=== PATIENT | male | born 1970 | race Caucasian/White ===

== ENCOUNTER 2024-08-13 10:13 | Emergency (ER) | payer OTHER, SELFPAY ==
[2024-08-13 10:28] VITALS: BP 127/72
[2024-08-13 10:35] VITALS: BP 127/72
[2024-08-13 10:42] VITALS: BP 122/86; BMI 31.4
--- NOTE | 2024-08-13 10:45 | ED.GENMED ---
History of Present Illness
<Dorian Almaraz PA-C - Last Filed: 08/13/24 12:43>
General
Chief Complaint: Chest Pain
Source: patient
Exam Limitations: none
Time Seen by Provider: 08/13/24 10:36
History of Present Illness
History of Present Illness:
53-year-old male with history of hypertension paroxysmal A-fib not currently on blood thinners presents with 4 days worth of chest discomfort and shortness of breath. He states any minimal exertion recreate to shortness of breath. Pain in his
chest is not described as a pain he feels a different sensation. He has no discomfort when taking a deep breath. He does note some recent weight gain. He did not notice any leg swelling. He denies any orthopnea. He denies abdominal pain.
Admits to drinking at least 12 beers a day. No other complaints at this time
Past History
<Dorian Almaraz PA-C - Last Filed: 08/13/24 12:43>
Past History
ED Past Medical History: Arrthythmia (Atrial fibrillation), Cancer (Skin), GERD, HTN and Other (Hyponatremia, hypomagnesemia, gout)
ED Past Surgical History: Appendectomy and Orthopedic
Social History
Tobacco: Non-smoker
Alcohol: Daily
Drug: None
Personal: Single
Living: alone
Employment: Employed
Phy Exam
<Dorian Almaraz PA-C - Last Filed: 08/13/24 12:43>
Physical Exam
Physical Exam:
General: Well-appearing male no acute respiratory distress
HEENT: Normocephalic sclera slightly icteric neck is supple
Heart: Regular rate and rhythm
Lungs: Clear no wheeze
Abdomen is soft nontender nondistended
Extremities: Mild pitting edema bilateral lower extremities
Skin is warm no rash
Scores
<Dorian Almaraz PA-C - Last Filed: 08/13/24 12:43>
Heart Score for Chest Pain Patients
STEMI patient?: No
History: Slightly or Non-Suspicious
ECG: Normal
Age: >45 - <65 years
Risk Factors: 1 or 2 Risk Factors
Troponin: </= Normal Limit
Heart Score for Chest Pain Patients: 2
Heart Score Risk: 2.5% MACE over next 6 weeks
Course
<Dorian Almaraz PA-C - Last Filed: 08/13/24 12:43>
Orders/Labs/Results
Orders:
Orders
08/13/24 10:16
ECG [Electrocardiogram (*1)] Urgent
Reason for Study: Chest Pain
EKG- Treatment ONCE
08/13/24 10:44
CR Chest - 2 Views Urgent
Comment:
Reason For Exam: sob
08/13/24 10:48
D-Dimer Urgent
08/13/24 10:49
Complete Blood Count/With Diff Urgent
Comprehensive Metabolic Panel Urgent
Lipase Urgent
Magnesium Urgent
NT-proBNP Urgent
Troponin I Urgent
Abnormal Lab Results
08/13/24
10:49
RBC 2.77 L 10^6/uL
(4.70-6.10)
Hgb 9.5 L g/dL
(13.0-18.0)
Hct 26.7 L %
(39.0-52.0)
MCV 96.4 H fL
(80.0-94.0)
MCH 34.3 H pg
(27.0-31.0)
Absolute Lymphs (auto) 0.7 L 10^3/uL
(1.2-3.4)
Neutrophils % 78.4 H %
(42.2-75.2)
Lymphocytes % 11.9 L %
(20.5-51.1)
Sodium 127 L mmol/L
(135-145)
Carbon Dioxide 19 L mmol/L
(22-30)
BUN 25 H mg/dl
(9-20)
Creatinine 1.5 H mg/dL
(0.7-1.3)
Glucose 100 H mg/dl
(70-99)
Magnesium 1.1 L mg/dl
(1.6-2.3)
AST 62 H U/L
(17-59)
08/13/24 10:49
08/13/24 10:49
Vital Signs
Initial and Last Documented VS:
Initial Vital Signs
Temp Pulse Resp BP Pulse Ox
98.7 F 63 18 127/72 99
08/13/24 10:28 08/13/24 10:28 08/13/24 10:28 08/13/24 10:28 08/13/24 10:28
Last Documented Vital Signs
Temp Pulse Resp BP Pulse Ox
98.2 F 62 16 122/83 99
08/13/24 10:35 08/13/24 11:53 08/13/24 12:00 08/13/24 11:52 08/13/24 12:01
<Geovanni Carreno MD - Last Filed: 08/13/24 12:33>
Orders/Labs/Results
Orders:
Orders
08/13/24 10:16
ECG [Electrocardiogram (*1)] Urgent
Reason for Study: Chest Pain
EKG- Treatment ONCE
08/13/24 10:44
CR Chest - 2 Views Urgent
Comment:
Reason For Exam: sob
08/13/24 10:48
D-Dimer Urgent
08/13/24 10:49
Complete Blood Count/With Diff Urgent
Comprehensive Metabolic Panel Urgent
Lipase Urgent
Magnesium Urgent
NT-proBNP Urgent
Troponin I Urgent
Abnormal Lab Results
08/13/24
10:49
RBC 2.77 L 10^6/uL
(4.70-6.10)
Hgb 9.5 L g/dL
(13.0-18.0)
Hct 26.7 L %
(39.0-52.0)
MCV 96.4 H fL
(80.0-94.0)
MCH 34.3 H pg
(27.0-31.0)
Absolute Lymphs (auto) 0.7 L 10^3/uL
(1.2-3.4)
Neutrophils % 78.4 H %
(42.2-75.2)
Lymphocytes % 11.9 L %
(20.5-51.1)
Sodium 127 L mmol/L
(135-145)
Carbon Dioxide 19 L mmol/L
(22-30)
BUN 25 H mg/dl
(9-20)
Creatinine 1.5 H mg/dL
(0.7-1.3)
Glucose 100 H mg/dl
(70-99)
Magnesium 1.1 L mg/dl
(1.6-2.3)
AST 62 H U/L
(17-59)
08/13/24 10:49
08/13/24 10:49
Vital Signs
Initial and Last Documented VS:
Initial Vital Signs
Temp Pulse Resp BP Pulse Ox
98.7 F 63 18 127/72 99
08/13/24 10:28 08/13/24 10:28 08/13/24 10:28 08/13/24 10:28 08/13/24 10:28
Last Documented Vital Signs
Temp Pulse Resp BP Pulse Ox
98.2 F 62 16 122/83 99
08/13/24 10:35 08/13/24 11:53 08/13/24 12:00 08/13/24 11:52 08/13/24 12:01
<Dorian Almaraz PA-C - Last Filed: 08/13/24 12:43>
MDM/Problems Addressed
Differential Diagnosis Includes:
Patient with shortness of breath and intermittent chest discomfort. Differential could include pneumonia versus PE versus volume overload versus liver failure versus anemia versus electrolyte abnormality. Review of chart does show that he has a
history of hyponatremia.
EKG here shows sinus rhythm without ischemic changes.
D-dimer and chest x-ray pending. Labs including troponin and BNP pending as well.
<Dorian Almaraz PA-C - Last Filed: 08/13/24 12:43>
*Critical Care Note
Total Time (30-74mins, 75-104mins- exclusive of procedures): Not Applicable
<Dorian Almaraz PA-C - Last Filed: 08/13/24 12:43>
Update Note
Update Note:
Workup here demonstrates new anemia with a hemoglobin of 9.5. Rectal exam performed after this shows brown stool heme-negative. Sodium is low but chronically low. Troponin undetectable. Chest x-ray shows no evidence of volume overload D-dimer is
undetectable. Dyspnea on exertion and shortness of breath may be a product of anemia or anginal symptom. Discussed with patient regarding recommendation to stay in hospital for further evaluation. Patient is declining staying in the hospital. He
states he needs to go to work. He understands that leaving could result in further shortness of breath heart attack or .
Discussed with emergency room attending saw the patient as well. Patient
ED Attending Note
<Dorian Almaraz PA-C - Last Filed: 08/13/24 12:43>
-
Portions of this chart may have been created with voice recognition software.� Occasional wrong word or��sound alike� substitutions may have occurred due to the inherent limitations of voice recognition software.
<Geovanni Carreno MD - Last Filed: 08/13/24 12:33>
ED Attending Note
Patient seen and examined by attending physician: Yes
I performed the substantive portion of visit, reviewed & personally made and approve the management plan that is documented in note by myself or RAMÓN.: Yes
ED Attending Note:
53-year-old male presents with exertional shortness of breath with some occasional chest discomfort over the last week. Seems more progressive. No abdominal pain no change in stools. Minimal symptoms at rest.
Admits to drinking 12 beers per day. History of chronic hyponatremia
On exam patient is nontoxic in no distress. Lungs are clear and equal. Heart regular rate and rhythm. Abdomen soft and nontender. Warm and dry. Perfusing well.
EKG normal sinus rhythm nonspecific interventricular delay. Troponin negative. Minimal elevation proBNP. D-dimer negative. Chest x-ray with no heart failure. Patient needs a rectal exam.. Recommended admission for possible new onset angina
complicated by anemia. Patient at this time refuses to stay. We will call with cardiology now.
1230... Patient refuses to stay. It was explained carefully that his symptoms could be unstable angina and could be life-threatening. It was made very clear to him that he could of sudden cardiac arrest. He has other issues including the
anemia which may be factoring into his shortness of breath. This also needs follow-up.
Patient remains refusing and is fully aware of the ramifications. We will arrange cardiac follow-up, hematology information and should follow-up his chronic hyponatremia
Discharge Plan
Departure
Patient Disposition: Against Medical Advice
Date of Disposition: 08/13/24
Time of Disposition: 12:41
Discharge Problem:
Anemia, Acute hyponatremia, Dyspnea on exertion
Instructions: Hyponatremia, Anemia in adults, possibly from low iron - ED discharge instructions, Chest Pain CBC Follow Up
Prescriptions:
No Action
atorvastatin 40 mg Tablet
40 mg PO DAILY
rabeprazole [AcipHex] 20 mg Tablet,Delayed Release (Dr/Ec)
20 mg PO BID
alprazolam 0.5 mg Tablet
0.5 mg PO TID PRN (Reason: anxiety)
flecainide 100 mg Tablet
100 mg PO BID
allopurinol 300 mg Tablet
300 mg PO DAILY
sodium chloride 1,000 mg Tablet,Soluble
4,000 mg PO DAILY
amlodipine-valsartan 5-320 mg Tablet
1 tab PO DAILY
fenofibric acid (choline) 135 mg capsule,delayed release(DR/EC)
135 mg PO DAILY
nebivolol [Bystolic] 20 mg Tablet
20 mg PO DAILY
tramadol 100 mg tablet
100 mg PO Q6H PRN (Reason: pain) Qty: 20 0RF
Referrals:
Hollis Wilhelm DO [Family Provider] -
Noble Villa MD [Active] -
Activity Restrictions/Additional Instructions:
As discussed we recommended that you stay in the hospital. Your decision to leave may result in further shortness of breath heart attack or even . Please if you change your mind at any point come back for further evaluation. Otherwise
continue to follow-up with cardiology and hematology.
Interventions
Interventions:
*Risk Screen - Suicide Last Done: 08/13/24 10:28
*General Assessment Last Done: 08/13/24 10:28
*Neglect/Abuse Screening Last Done: 08/13/24 10:28
*ED- Fall Risk Assessment Last Done: 08/13/24 10:42
*ED COVID-19 Vaccine History Last Done: 08/13/24 10:28
ED- Cardiac Assessment Last Done: 08/13/24 12:01
Discharge Date and Time
Print Language: MALAY
[2024-08-13 10:57] LABS: % Basophils 0.5 % (0-2); % Eosinophils 1.9 % (0-6); % Immature Granulocytes 0.3 % (0-0.5); % Lymphocytes 11.9 % (20.5-51.1); % Neutrophils 78.4 % (42.2-75.2); Absolute Eosinophils 0.1 10^3/uL (0-0.7); Absolute Lymphocytes 0.7 10^3/uL (1.2-3.4); Absolute Monocytes 0.4 10^3/uL (0.1-0.6); Absolute Neutrophils 4.6 10^3/uL (1.4-6.5); Hematocrit 26.7 % (39.0-52.0); Hemoglobin 9.5 g/dL (13.0-18.0); Mean Corp Hgb Conc. 35.6 g/dL (33.0-37.0); Mean Corpuscular Hgb 34.3 pg (27.0-31.0); Mean Corpuscular Volume 96.4 fL (80.0-94.0); Mean Platelet Volume 9.3 fL (7.4-10.4); Nucleated Red Blood Cells % 0 % (-); Platelet Count 202 10^3/uL (130-400); Red Blood Cell Count 2.77 10^6/uL (4.70-6.10); Red Cell Dist. Width 12.4 % (11.5-14.5); White Blood Cell Count 5.9 10^3/uL (4.8-10.8)
[2024-08-13 11:00] VITALS: BP 117/79
[2024-08-13 11:11] LABS: ALT (SGPT) 42 U/L (0-50); AST (SGOT) 62 U/L (17-59); Albumin 4.4 g/dl (3.5-5.0); Alkaline Phosphatase 54 U/L (38-126); Blood Urea Nitrogen 25 mg/dl (9-20); Calcium 9.3 mg/dl (8.4-10.2); Carbon Dioxide 19 mmol/L (22-30); Chloride 98 mmol/L (98-107); Estimated Creatinine Clearance 78 ml/min; Glucose 100 mg/dl (70-99); Lipase 102 U/L (23-300); Magnesium 1.1 mg/dl (1.6-2.3); Sodium 127 mmol/L (135-145); Total Bilirubin 1.1 mg/dl (0.2-1.3); eGFR 55.32
[2024-08-13 11:14] LABS: D-Dimer < 0.27 ug/mlFEU (0.00-0.50)
[2024-08-13 11:25] LABS: NT-proBNP 1130 pg/ml; Troponin I < 0.012 ng/ml
[2024-08-13 11:52] VITALS: BP 122/83
[2024-08-13 12:00] VITALS: BP 130/84
== END 2024-08-13 12:55 | disposition left against medical advice (07) ==
LOC: EMR 10:13
PROVIDERS: Physician Assistant; EMERGENCY PHYSICIAN Emergency Medicine; FAMILY PHYSICIAN Family Medicine
DX: D64.9 Anemia, unspecified (principal); E87.1 Hypo-osmolality and hyponatremia; R06.09 Other forms of dyspnea; I48.0 Paroxysmal atrial fibrillation; I10 Essential (primary) hypertension; K21.9 Gastro-esophageal reflux disease without esophagitis; Z85.828 Personal history of other malignant neoplasm of skin; Z90.49 Acquired absence of other specified parts of digestive tract; Z53.29 Procedure and treatment not carried out because of patient's decision for other reasons
CPT/HCPCS: 99285; 71046; 80053; 83690; 83735; 83880; 84484; 85025; 85379; 93005

== ENCOUNTER 2025-05-05 14:18 | Emergency (ER) | payer OTHER, SELFPAY ==
[2025-05-05 14:25] VITALS: BP 153/113
[2025-05-05 14:57] LABS: Hematocrit 29.5 % (39.0-52.0); Hemoglobin 10.9 g/dL (13.0-18.0); Mean Corp Hgb Conc. 36.9 g/dL (33.0-37.0); Mean Corpuscular Volume 93.1 fL (80.0-94.0); Nucleated Red Blood Cells % 0 % (-); Platelet Count 209 10^3/uL (130-400); Red Cell Dist. Width 12.4 % (11.5-14.5)
[2025-05-05 15:06] LABS: COVID-19 Antigen Negative (Negative)
[2025-05-05 15:08] LABS: INR 1.11; PT 14.4 Sec (11.4-14.6)
[2025-05-05 15:09] LABS: ALT (SGPT) 140 U/L (0-50); AST (SGOT) 215 U/L (17-59); Albumin 4.6 g/dl (3.5-5.0); Alkaline Phosphatase 58 U/L (38-126); Blood Urea Nitrogen 11 mg/dl (9-20); Calcium 9.6 mg/dl (8.4-10.2); Carbon Dioxide 19 mmol/L (22-30); Chloride 91 mmol/L (98-107); Glucose 75 mg/dl (70-99); Potassium 4.3 mmol/L (3.5-5.1); Sodium 124 mmol/L (135-145); Total Protein 7.4 g/dl (6.3-8.2); eGFR > 60.00
[2025-05-05 15:20] LABS: Troponin I < 0.012 ng/ml
--- NOTE | 2025-05-05 18:16 | ED.GENMED ---
History of Present Illness
General
Chief Complaint: Breathing Problem
Source: patient
Exam Limitations: none
Time Seen by Provider: 05/05/25 18:03
Nursing documentation reviewed up to this point in time: agreed with
History of Present Illness
History of Present Illness:
54-year-old male past medical history of A-fib currently on flecainide, hypertension hyperlipidemia alcohol abuse presenting to the emergency department today with concerns of shortness of breath over the past 3 weeks. Has been seen by urgent care
2 times in the duration was initially on antibiotic and then last week was started on steroids on a taper dose currently on 10 mg daily for the next few days. Has been using an albuterol inhaler intermittently at home without relief. Denies any
specific chest pain nausea vomiting or ongoing fevers. Denies any history of asthma or COPD.
Past History
Past History
ED Past Medical History: Arrthythmia (Atrial fibrillation), Cancer (Skin), GERD, HTN and Other (Hyponatremia, hypomagnesemia, gout)
ED Past Surgical History: Appendectomy and Orthopedic
Social History
Tobacco: Non-smoker
Alcohol: Daily
Drug: None
Personal: Single
Living: alone
Employment: Employed
Review of Systems
Review of Systems
Allergies reviewed?: Yes
All Other Systems: ROS reviewed and negative except as documented in HPI and ROS
Phy Exam
Physical Exam
Physical Exam:
GENERAL: Alert , in no apparent distress
EYE: pupils equal and reactive
NECK: Supple, no significant adenopathy.
ENT: o/p clr, mmm.
CARDIAC: Regular rate and rhythm .
LUNGS: Inspiratory and expiratory wheezing bilaterally
ABDOMEN: Soft, without focal tenderness, no r/g, no cvat
NEUROLOGICAL: Alert and oriented, no focal neuro deficits
SKIN: Warm and dry, skin intact.
MUSCULOSKELETAL: No edema, well perfused.
PSYCH: Normal and appropriate interaction.
Scores
Heart Failure Risk
Heart Failure Risk Score: Not Applicable
Course
Orders/Labs/Results
Orders:
Orders
05/05/25 14:28
EKG [Electrocardiogram (*1)] Urgent
Reason for Study: Shortness of Breath
EKG- Treatment ONCE
CR Chest - 2 Views Urgent
Comment:
Reason For Exam: SOB
05/05/25 14:39
COVID-19 Antigen Urgent
Source: Nasal Swab
Complete Blood Count/With Diff Urgent
Comprehensive Metabolic Panel Urgent
Pro-BNP [NT-proBNP] Urgent
Prothrombin Time Urgent
Troponin I Urgent
Influenza A+B Rapid Molecular Urgent
DARCI Source: Nasal Swab
Specimen Description:
05/05/25 18:15
Dexamethasone Sod Phosphate [Decadron] 10 mg IV NOW STA
Famotidine [Pepcid] 20 mg IV NOW STA
Ipratropium/Albuterol Sulfate [Duoneb] 3 ml INH R NOW ONE
Ondansetron Injectable [Zofran] 4 mg IV NOW STA
Abnormal Lab Results
05/05/25
14:39
RBC 3.17 L 10^6/uL
(4.70-6.10)
Hgb 10.9 L g/dL
(13.0-18.0)
Hct 29.5 L %
(39.0-52.0)
MCH 34.4 H pg
(27.0-31.0)
Absolute Neuts (auto) 7.7 H 10^3/uL
(1.4-6.5)
Absolute Lymphs (auto) 0.3 L 10^3/uL
(1.2-3.4)
Neutrophils % 90.8 H %
(42.2-75.2)
Lymphocytes % 3.6 L %
(20.5-51.1)
Sodium 124 L mmol/L
(135-145)
Chloride 91 L mmol/L
(98-107)
Carbon Dioxide 19 L mmol/L
(22-30)
Total Bilirubin 1.4 H mg/dl
(0.2-1.3)
AST 215 H U/L
(17-59)
ALT 140 H U/L
(0-50)
05/05/25 14:39
05/05/25 14:39
Vital Signs
Initial and Last Documented VS:
Initial Vital Signs
Temp Pulse Resp BP Pulse Ox
98.8 F 96 17 153/113 96
05/05/25 14:25 05/05/25 14:25 05/05/25 14:25 05/05/25 14:25 05/05/25 14:25
Last Documented Vital Signs
Temp Pulse Resp BP Pulse Ox
98.8 F 83 17 160/93 100
05/05/25 14:25 05/05/25 18:46 05/05/25 14:25 05/05/25 19:00 05/05/25 19:00
MDM/Problems Addressed
MDM/Problems Addressed:
54-year-old male presenting to the emergency department today with concerns of shortness of breath over the past 3 weeks. Initially treated with an antibiotic then has since been on steroid currently on 10 mg daily. Here vital signs are normal
pulse ox in the mid 90s labs showing low sodium. He does claim to have chronic low sodium levels that the mid 120s is normal for him. He follows up closely as an outpatient for this. Also claims that he has been drinking daily. Here does have
wheezing diffusely. Was started on DuoNeb steroid also given medication considering he also has had some nausea. Otherwise chest x-ray normal EKG normal troponin negative. Patient was reassessed after treatment still with ongoing wheeze. Vital
signs do look normal with pulse ox in the mid 90s heart rate in the 80s. Patient does not appear to be in any distress. It was explained to him that his sodium was low at 124. He claims that this is chronically low which was verified with old
levels. He claimed that he would like to go home at this point. It was explained to him that need to be admitted due to the ongoing wheezing despite outpatient steroids as well as a low sodium. He claimed that he still would not like to stay and
understands the risk. He claims it will follow-up closely as an outpatient and he would return if any symptoms worsen.
*Pulse Oximetry
SaO2: 96
Oxygen Mode of Delivery: Room air
Patient hypoxic: no (95)
*Critical Care Note
Total Time (30-74mins, 75-104mins- exclusive of procedures): Not Applicable
ED Attending Note
-
Portions of this chart may have been created with voice recognition software.� Occasional wrong word or��sound alike� substitutions may have occurred due to the inherent limitations of voice recognition software.
Discharge Plan
Departure
Patient Disposition: Home (Routine Discharge)
Date of Disposition: 05/05/25
Time of Disposition: 19:27
Patient with high blood pressure during this ER visit?: No
Condition: Good
Covid-19: Not Applicable
Discharge Problem:
Wheeze, Hyponatremia
Instructions: Asthma, Adult (DC)
Prescriptions:
New
(DME) nebulizer and compressor Device
See Rx Instructions .ROUTE Qty: 1 0RF
Rx Instructions:
As directed
albuterol sulfate 2.5 mg /3 mL (0.083 %) solution for nebulization
2.5 mg inhalation Q4H PRN (Reason: bronchospasm) Qty: 90 0RF
prednisone 10 mg Tablet
See Rx Instructions .ROUTE .COMPLEX Qty: 30 0RF
Rx Instructions:
Take By Mouth:
40 mg daily x3 days, 30 mg daily x3 days,
20 mg daily x3 days, 10 mg daily x3 days.
No Action
atorvastatin 40 mg Tablet
40 mg PO DAILY
rabeprazole [AcipHex] 20 mg Tablet,Delayed Release (Dr/Ec)
20 mg PO BID
alprazolam 0.5 mg Tablet
0.5 mg PO TID PRN (Reason: anxiety)
flecainide 100 mg Tablet
100 mg PO BID
allopurinol 300 mg Tablet
300 mg PO DAILY
sodium chloride 1,000 mg Tablet,Soluble
4,000 mg PO DAILY
amlodipine-valsartan 5-320 mg Tablet
1 tab PO DAILY
fenofibric acid (choline) 135 mg capsule,delayed release(DR/EC)
135 mg PO DAILY
nebivolol [Bystolic] 20 mg Tablet
20 mg PO DAILY
tramadol 100 mg tablet
100 mg PO Q6H PRN (Reason: pain) Qty: 20 0RF
Activity Restrictions/Additional Instructions:
You came to the emergency department today with concerns of shortness of breath has been ongoing. Here you are found to be wheezing. You were given steroid as well as nebulizer treatment. You will need ongoing steroids at a tapered dose and
follow close with the primary care doctor. Please use the nebulizer as needed. Return for any worsening, new or concerning symptoms.
Interventions
Interventions:
*Risk Screen - Suicide Last Done: 05/05/25 14:27
*General Assessment Last Done: 05/05/25 14:27
*Neglect/Abuse Screening Last Done: 05/05/25 14:27
*ED COVID-19 Vaccine History Last Done: 05/05/25 14:27
*ED Influenza Vaccine History Last Done: 05/05/25 14:27
[facility] Fall Risk Assessment Tool Last Done: 05/05/25 18:46
ED- Cardiac Assessment Last Done: 05/05/25 18:47
ED- Pulmonary Assessment Last Done: 05/05/25 18:47
Discharge Date and Time
Print Language: SLOVENIAN
[2025-05-05 18:24] VITALS: BMI 28.6
[2025-05-05] MEDS: DECADRON 10 MG IV (18:30)
[2025-05-05] MEDS: ZOFRAN 4 MG IV (18:31)
[2025-05-05] MEDS: PEPCID 20 MG IV (18:32)
[2025-05-05] MEDS: DUONEB 3 ML INH (18:41)
[2025-05-05 18:46] VITALS: BP 165/93
[2025-05-05 19:00] VITALS: BP 160/93
== END 2025-05-05 19:45 | disposition home or self-care (01) ==
LOC: EMR 14:18
PROVIDERS: Emergency Medicine; EMERGENCY PHYSICIAN Emergency Medicine
DX: R06.2 Wheezing (principal); E87.1 Hypo-osmolality and hyponatremia; E78.5 Hyperlipidemia, unspecified; I10 Essential (primary) hypertension; I48.91 Unspecified atrial fibrillation; Z90.49 Acquired absence of other specified parts of digestive tract; Z85.828 Personal history of other malignant neoplasm of skin; Z79.899 Other long term (current) drug therapy; Z11.52 Encounter for screening for COVID-19
CPT/HCPCS: 96374; 96375; 94640; 99284; 71046; 80053; 83880; 84484; 85025; 85610; 87502; 87811; 93005

== ENCOUNTER 2025-05-09 20:17 | Inpatient (IN) | payer OTHER, SELFPAY ==
[2025-05-09] VITALS (20 sets, daily range): BP systolic 62–135; BP diastolic 37–87; BMI 14.4; BMI 30.9
--- NOTE | 2025-05-09 15:38 | ED.GENMED ---
History of Present Illness
General
Chief Complaint: Breathing Problem
Time Seen by Provider: 05/09/25 15:29
History of Present Illness
History of Present Illness:
Patient is a 54-year-old male with a history of atrial fibrillation, hypertension, alcohol use disorder who presents to the emergency department with cough and shortness of breath. This has been ongoing for the past 2 weeks. States he was seen
doctors in the urgent care in the emergency department for similar symptoms without good diagnosis. Notes he feels more short of breath. His notes episodes of confusion. She reports that he has had hyponatremia in the past and it appeared
similar to this. Patient denies any chest pain. Denies leg swelling.
Past History
Past History
ED Past Medical History: Arrthythmia (Atrial fibrillation), Cancer (Skin), GERD, HTN and Other (Hyponatremia, hypomagnesemia, gout)
ED Past Surgical History: Appendectomy and Orthopedic
Social History
Tobacco: Non-smoker
Alcohol: Daily
Drug: None
Personal: Single
Living: alone
Employment: Employed
Phy Exam
Physical Exam
Physical Exam:
GENERAL APPEARANCE: No acute distress, chronically ill-appearing
EYES lids/conjunctiva normal
EARS/NOSE/THROAT Mucous membranes moist, uvula midline without oral pharyngeal erythema, exudate or swelling
HEAD/NECK Normocephalic atraumatic, neck is supple.
RESPIRATORY tachypnea noted, rhonchi bilaterally. Diminished breath sounds on the left.
CARDIAC Regular rate and rhythm, no edema.
ABDOMINAL Soft, ND/NT.
MUSCLES/EXTREMITIES No abnormal range of motion, no swelling.
SKIN Warm, pink and dry. No rashes
NEUROLOGICAL Speech is clear and appropriate. Normal level of consciousness. 5/5 strength in all extremities.
PSYCH Normal mood and affect. Judgement/competence is appropriate
Scores
Heart Failure Risk
Heart Failure Risk Score: Not Applicable
Course
Orders/Labs/Results
Orders:
Orders
05/09/25 15:36
0.9% Sodium Chloride 1000 ml [Nss] 1,000 ml IV BOLUS
05/09/25 15:37
CR Chest - 2 Views Urgent
Comment:
Reason For Exam: sob
05/09/25 15:38
Electrocardiogram (*1) Urgent
Reason for Study: Other
Other Reason for Exam: sepsis
05/09/25 15:40
Complete Blood Count/With Diff Urgent
Comprehensive Metabolic Panel Urgent
D-Dimer Urgent
Magnesium Urgent
NT-proBNP Urgent
PTT Urgent
Prothrombin Time Urgent
Troponin I Urgent
05/09/25 15:42
Lactic Acid Q4H
Comment: CANCEL 2nd LACTIC ACID IF 1st LACTIC ACID IS LESS THAN 2
Blood Culture Q30M
[facility]AR[facility] Source: Blood/Venous
Specimen Description:
Influenza A+B Rapid Molecular Urgent
[facility] Source: Nasal Swab
Specimen Description:
05/09/25 15:52
Add On- LAB Urgent
Tests Added?: pron BNP
05/09/25 16:03
Blood Culture Q30M
DRACI Source: Blood/Venous
Specimen Description:
05/09/25 16:08
CT Chest PE Study Urgent
Comment:
Reason For Exam: +ddimer, sob
05/09/25 16:34
0.9% Sodium Chloride 1000 ml [Nss] 1,000 ml IV BOLUS
Ipratropium/Albuterol Sulfate [Duoneb] 3 ml INH R NOW ONE
MethylPREDNISolone PF [Solu-Medrol Pf] 125 mg IV NOW STA
05/09/25 16:39
Magnesium Sulfate 1 grams 0.9% Sodium Chloride 100 ml [Nss] 100 ml IV NOW
05/09/25 17:33
CefTRIAXone [Rocephin] 1,000 mg IV NOW STA
05/09/25 17:34
Azithromycin [Zithromax] 250 mg 0.9% Sodium Chloride 250 ml [Nss] 250 ml IV NOW
05/09/25 19:45
Lactic Acid Q4H
Comment: CANCEL 2nd LACTIC ACID IF 1st LACTIC ACID IS LESS THAN 2
Abnormal Lab Results
05/09/25
15:40
RBC 2.90 L 10^6/uL
(4.70-6.10)
Hgb 9.6 L g/dL
(13.0-18.0)
Hct 26.8 L %
(39.0-52.0)
MCH 33.1 H pg
(27.0-31.0)
Abs Immat Gran (auto) 0.1 H 10^3/uL
(0-0.05)
Immature Gran % 1.0 H %
(0-0.5)
Lymphocytes % 18.5 L %
(20.5-51.1)
D-Dimer 0.88 H ug/mlFEU
(0.00-0.50)
Sodium 124 L mmol/L
(135-145)
Chloride 95 L mmol/L
(98-107)
Carbon Dioxide 17 L mmol/L
(22-30)
Creatinine 1.7 H mg/dL
(0.7-1.3)
Glucose 108 H mg/dl
(70-99)
Magnesium 1.1 L mg/dl
(1.6-2.3)
AST 250 H U/L
(17-59)
ALT 192 H U/L
(0-50)
Total Protein 5.9 L g/dl
(6.3-8.2)
Albumin 3.4 L g/dl
(3.5-5.0)
05/09/25 15:40
05/09/25 15:40
Vital Signs
Initial and Last Documented VS:
Initial Vital Signs
Temp Pulse Resp BP Pulse Ox
97.4 F 86 16 62/43 94
05/09/25 15:13 05/09/25 15:13 05/09/25 15:13 05/09/25 15:13 05/09/25 15:13
Last Documented Vital Signs
Temp Pulse Resp BP Pulse Ox
97.4 F 75 24 91/54 93
05/09/25 15:13 05/09/25 16:45 05/09/25 16:45 05/09/25 16:45 05/09/25 16:40
*Pulse Oximetry
SaO2: 94
Oxygen Mode of Delivery: Room air
Patient hypoxic: yes
*Critical Care Note
Total Time (30-74mins, 75-104mins- exclusive of procedures): 35 minutes
Update Note
Update Note:
Reassessed patient per sepsis protocol. Patient with improving vital signs maintaining normal mental status.
ED Attending Note
ED Attending Note
ED Attending Note:
Patient presents to the emergency department with shortness of breath, cough, generalized weakness. Found to be hyponatremic and have a left-sided pneumonia. Suspect aspiration pneumonia in the setting of daily alcohol use. His hyponatremia is
chronic and typically is around the low 120s. On arrival, patient was hypotensive but mentating well without any secondary signs of significant shock. Sepsis fluid bolus was ordered. Patient's blood pressure improved with IV fluids. Normal
lactate. Normal white blood cell count.
presents with shortness of breath over the past month, cough. Has been treated for pneumonia as outpatient. Also treated for bronchitis. Has been on steroids for pretty much the last month.
More short of breath today so came to ER
he appears mildly tachypnniec. Rhonchorus breath sounds and some scattered wheezing present. Diminished on the L
afebrile
he is hypoxic to 89% on RA. requiring NC O2
initially hypotensive 60s/40s. Improving with IVF
CTA of the chest without PE. Showing ground glass multifocal opacities and interlobular septal thickening on the left . Patient does report an aspiration episode about 1 month ago.
BNP is 1060, superimposed asymmetric pulmonary edema is difficult to exclude - he will need echo too.
he may have a component of adrenal suppression as well with all the steroids he has been on.
given duonebs, solumedrol, ceftriaxone, azithromycin
-
Portions of this chart may have been created with voice recognition software.� Occasional wrong word or��sound alike� substitutions may have occurred due to the inherent limitations of voice recognition software.
Discharge Plan
Departure
Patient Disposition: Admit
Date of Disposition: 05/09/25
Time of Disposition: 17:51
Presentation/result/management discussed w/ accepting MD/DO: Hospitalist
Discharge Problem:
Multifocal pneumonia, Chronic hyponatremia, Hypomagnesemia
Prescriptions:
No Action
atorvastatin 40 mg Tablet
40 mg PO DAILY
rabeprazole [AcipHex] 20 mg Tablet,Delayed Release (Dr/Ec)
20 mg PO BID
alprazolam 0.5 mg Tablet
0.5 mg PO BIDPRN PRN (Reason: anxiety)
flecainide 100 mg Tablet
100 mg PO BID
allopurinol 300 mg Tablet
300 mg PO DAILY
sodium chloride 1,000 mg Tablet,Soluble
6,000 mg PO DAILY
fenofibric acid (choline) 135 mg capsule,delayed release(DR/EC)
135 mg PO DAILY
nebivolol [Bystolic] 20 mg Tablet
20 mg PO DAILY
prednisone 10 mg Tablet
See Rx Instructions .ROUTE .COMPLEX Qty: 30 0RF
Rx Instructions:
Take By Mouth:
40 mg daily x3 days, 30 mg daily x3 days,
20 mg daily x3 days, 10 mg daily x3 days.
amlodipine-valsartan 10-320 mg Tablet
1 tab PO DAILY
Referrals:
UNKNOWN - PT DOES,NOT KNOW [Family Provider]
Interventions
Interventions:
*General Assessment Last Done: 05/09/25 16:18
*Neglect/Abuse Screening Last Done: 05/09/25 16:22
*ED Influenza Vaccine History Last Done: 05/09/25 16:18
[facility] Fall Risk Assessment Tool Last Done: 05/09/25 16:35
ED- Cardiac Assessment Last Done: 05/09/25 16:10
ED- Pulmonary Assessment Last Done: 05/09/25 16:10
Discharge Date and Time
Print Language: VENEZUELAN
[2025-05-09] MEDS: NSS 1000 IV ×2 (15:47→16:40)
[2025-05-09 15:51] LABS: Hematocrit 26.8 % (39.0-52.0); Hemoglobin 9.6 g/dL (13.0-18.0); Mean Corp Hgb Conc. 35.8 g/dL (33.0-37.0); Mean Corpuscular Volume 92.4 fL (80.0-94.0); Nucleated Red Blood Cells % 0 % (-); Platelet Count 211 10^3/uL (130-400); Red Cell Dist. Width 12.4 % (11.5-14.5)
[2025-05-09 16:02] LABS: INR 1.09; PT 14.3 Sec (11.4-14.6)
[2025-05-09 16:03] LABS: APTT 26.9 Sec (23.4-35.0)
[2025-05-09 16:05] LABS: D-Dimer 0.88 ug/mlFEU (0.00-0.50)
[2025-05-09 16:12] LABS: ALT (SGPT) 192 U/L (0-50); AST (SGOT) 250 U/L (17-59); Albumin 3.4 g/dl (3.5-5.0); Alkaline Phosphatase 48 U/L (38-126); Blood Urea Nitrogen 11 mg/dl (9-20); Calcium 8.5 mg/dl (8.4-10.2); Carbon Dioxide 17 mmol/L (22-30); Chloride 95 mmol/L (98-107); Estimated Creatinine Clearance 37 ml/min; Glucose 108 mg/dl (70-99); Magnesium 1.1 mg/dl (1.6-2.3); Potassium 3.7 mmol/L (3.5-5.1); Sodium 124 mmol/L (135-145); Total Protein 5.9 g/dl (6.3-8.2); eGFR 47.31
[2025-05-09 16:23] LABS: Troponin I 0.026 ng/ml
[2025-05-09] MEDS: SOLU-MEDROL PF 125 MG IV (16:38)
[2025-05-09] MEDS: DUONEB 3 ML INH (16:39)
[2025-05-09] MEDS: MAGNESIUM SULFATE 102 GRAMS IV (17:42)
[2025-05-09] MEDS: ROCEPHIN 1000 MG IV (17:44)
[2025-05-09] MEDS: ZITHROMAX 252.5 MG IV (18:57)
--- NOTE | 2025-05-09 19:01 | HPS.HSE ---
Family Physician
-
Family Physician: NOT KNOW UNKNOWN - PT DOES
Chief Complaint
-
SoB over the past month with cough with progressive SoB
History of Present Illness
54M
PHX: Daily severe alcohol use, chronic hyponatremia( baseline low 120s), Prx AF
- pw SoB over the past month with cough with progressive SoB
- has been treated with OP ABx for PNA plus treating for bronchitis with steroids for much the last month.
- appears mildly tachypneic.
- Rhonchus breath sounds and wheezing present.
- afebrile
- Hypoxic POx 89% on RA. requiring NC O2
- initially hypotensive 60s/40s - improving with IVF - now he is normotensive.
Medical History
Past Medical History
Past Medical History: Reports Other
Additional Past Medical History:
Atrial fib
Hypertension
Skin cancer
GERD
Past Surgical History: Reports Other
Additional Past Surgical History:
Appendectomy
Shoulder reconstruction
Cardioversion x2
Social History
Tobacco: Non-smoker
Alcohol: Daily (15 cans of beer every day)
Drug: None
Personal: Single
Living: Alone
Employment: Employed ([employer])
Family History
Family History: Not pertinent
Allergies / Home Medications
Allergies reflects when Allergies were last updated in [employer].
Home Medications with original date entered in [employer]
Allergy/Medication List:
Allergies
Allergy/AdvReac Type Severity Reaction Status Date / Time
No Known Allergies Allergy Verified 06/26/22 11:15
Home Medications Table - record
Medication Instructions Recorded Confirmed
allopurinol 300 mg tablet 300 mg PO DAILY 02/02/22 02/02/22
alprazolam 0.5 mg tablet 0.5 mg PO TID PRN panic attacks 02/02/22 02/02/22
amlodipine 5 mg-valsartan 320 mg 1 tab PO DAILY 02/02/22 02/02/22
tablet
atorvastatin 40 mg tablet 40 mg PO DAILY 02/02/22 02/02/22
fenofibric acid (choline) 135 mg 135 mg PO DAILY 02/02/22 02/02/22
capsule,delayed release
flecainide 100 mg tablet 100 mg PO BID 02/02/22 02/02/22
nebivolol 20 mg tablet (Bystolic) 20 mg PO DAILY 02/02/22 02/02/22
rabeprazole 20 mg tablet,delayed 20 mg PO BID 02/02/22 02/02/22
release (AcipHex)
sodium chloride 1,000 mg soluble 3,000 mg PO DAILY 02/02/22 02/02/22
tablet
oxycodone-acetaminophen 5 mg-325 1 tab PO Q4HPRN PRN pain #20 tabs 05/07/22
mg tablet (Percocet)
Review of Systems
-
Constitutional: Reports No Symptoms
EENT: Reports No Symptoms
Respiratory: Reports See HPI and Trouble Breathing
Cardiac: Reports No Symptoms
Abdomen/GI: Reports No Symptoms
: Reports No Symptoms
Musculoskeletal: Reports No Symptoms
Skin: Reports No Symptoms
Neurological: Reports Weakness (Tingling of left fingers)
Endocrine: Reports No Symptoms
Hematologic/Lymphatic: Reports No Symptoms
Psych: Reports No Symptoms
Physical Exam
Vital Signs
Vital Signs
Temp Pulse Resp BP Pulse Ox
97.4 F 75 24 91/54 93
05/09/25 15:13 05/09/25 16:45 05/09/25 16:45 05/09/25 16:45 05/09/25 16:40
Physical Exam
General: No Apparent Distress and Appears Chronically Ill
HEENT: Moist mucous membranes
Respiratory: Rhonchi (bilateral Ronchi ), Decreased Breath Sounds (on the Lt ) and Other (tachypnea )
Cardiac: S1/S2 and Regular Rhythm
GI: Soft, Non Tender and Non Distended
Rectal: Deferred by Provider
Genito-urinary: Deferred by me
Musculoskeletal: Edema, Left Lower Extremity and Edema, Right Lower Extremity
Skin: Warm and Dry
Neuro: AO x 3
Psych: Calm and Intact Judgment/Insight
Laboratory Results
-
05/09/25 15:40
05/09/25 15:40
Laboratory Results
PT 14.3 Sec (11.4-14.6) 05/09/25 15:40
INR 1.09 05/09/25 15:40
APTT 26.9 Sec (23.4-35.0) 05/09/25 15:40
Lactic Acid 1.4 mmol/L (0.7-2.0) 05/09/25 15:42
Total Bilirubin 0.7 mg/dl (0.2-1.3) 05/09/25 15:40
AST 250 U/L (17-59) H 05/09/25 15:40
ALT 192 U/L (0-50) H 05/09/25 15:40
Alkaline Phosphatase 48 U/L (38-126) 05/09/25 15:40
Troponin I 0.026 ng/ml 05/09/25 15:40
Data Reviewed
-
Lab Data: Labs Reviewed by me
Old Records: Reviewed
Impression/Plan
-
Vital Signs
Temp Pulse Resp BP Pulse Ox
97.9 F 82 26 112/71 95
05/09/25 19:10 05/09/25 19:04 05/09/25 19:04 05/09/25 19:04 05/09/25 19:04
05/05/25 05/09/25
14:39 15:40
WBC 7.0
Hgb 10.9 L 9.6 L
Plt Count 209 211
05/09/25
15:40
INR 1.09
D-Dimer 0.88 H
08/13/24 05/05/25 05/09/25
10:49 14:39 15:40
Sodium 124 L 124 L
Chloride 91 L 95 L
Carbon Dioxide 19 L 17 L
Creatinine 1.5 H 1.2 1.7 H
eGFR 55.32 > 60.00 47.31
05/05/25 05/09/25 05/09/25
14:39 15:40 15:42
Lactic Acid 1.4
Magnesium 1.1 L
Total Bilirubin 1.4 H 0.7
AST 215 H 250 H
ALT 140 H 192 H
Troponin I < 0.012 0.026
Brk-Y-Hvsxpyufzyt Pept 173 1060
Albumin 3.4 L
EKG
NORMAL SINUS RHYTHM
NORMAL ECG
WHEN COMPARED WITH ECG OF 05-May-2025 14:33,
NO SIGNIFICANT CHANGE WAS FOUND
[facility] PE protocol
1. No evidence of PE
2. Interlobular septal thickening and groundglass densities as described, suggesting multifocal pneumonia/pneumonitis with possible superimposed asymmetric pulmonary edema.
2. Moderate hiatal hernia.
Last hospitalist admission: 06/26/2022 - 06/27/2022
DISCHARGE DIAGNOSES:
1. Recurrent hyponatremia due to alcohol abuse.
2. Severe alcohol use disorder.
3. History of atrial fibrillation.
SECONDARY DIAGNOSES:
1. Gout.
2. Hyperlipidemia.
3. Essential hypertension.
4. Gastroesophageal reflux disease.
ASSESSMENT & PLAN
CT suggest multifocal pneumonia/pneumonitis with possible superimposed asymmetric pulmonary edema.
- c/w empiric IV CFTZ and PO Azithro
- check PCT in AM
- FU POx
Chronic hyponatremia suspect from alcohol abuse/dehydration
- NG ( 12) MA suspect ETOH ketosis
- Sodium 124 and somewhat stable - he received 2 L NS at ER then FR 48 Fl Oz
- Hold off 3% infusion
- obtain urine sodium, serum osm, urine osm
- FU BMP
- FR 48 fl oz
- Nephrology consult
Hypomagnesemia due to ETOH use disorder
s/p IV Mg 1 gm
- FU Mg in AM
TORITO suspect pre renal due to dehydration
Essential hypertension
- B/L Sandra edema
- Hold Valsartan
- c/w Amlodipine
- Observe BP
- Observe Cr in AM
Severe ETOH disorder -drinks 15 beers daily.
- NO signs of autonomic hyperarousal
- Reversed AST : ALT ration suggestive of ETOH hepatitis
- Counseled on need for abstinence.
- Trend LFTs with abstinence from ETOH
- Watch closely for withdrawal symptoms.
- ETOH WD protocol
In NSR
HX Prx AF
- HX CV twice and patient claims he has been in sinus rhythm since.
- Not on AC
- P client relations specialist is located in [facility].
Gout
-on allopurinol.
Hyperlipidemia
-on atorvastatin, fenofibric acid.
GERD
-on AcipHex.
Obesity due to excess calories
DVT Px: SCD
Full code
IP TLM
[2025-05-09 20:50] LABS: Urine Character Clear (Clear)
--- NOTE | 2025-05-09 21:47 | TRANSFER ---
Pt arrived from the ED by stretcher. Pt able to stand for standing scale and ambulate into room. Pt c/o of dizziness and a GILL, mostly describing the dizziness as congestion in his head. No complaints of dizziness with standing. Pt states that he
drinks usually 15-20 beers a day. MSAS per protocol, score of 4. Call heath within reach. Will continue to monitor.
--- NOTE | 2025-05-09 21:53 | PTCARENOTE ---
Pt c/o burning back pain. Tylenol is the only medication ordered in MAR. Pt refusing tylenol stating. 'That doesn't do anything for me'. When asked if he takes anything at home for the pain the pt stated no. When doing the intake questions, the pt
did state that he has misused prescribed medication outside their intended use. House provider TT. Lidocaine patch ordered for lower back. See MAR.
[2025-05-09] MEDS: XANAX 0.5 MG PO (22:31)
[2025-05-09] MEDS: TAMBOCOR 100 MG PO (22:31)
[2025-05-09] MEDS: LIDOCAINE 4% PATCH 1 PATCH TOPICAL (22:32)
[2025-05-09 22:49] LABS: GGTP 99 U/L (15-73)
[2025-05-09 23:21] LABS: INR 1.06; PT 13.9 Sec (11.4-14.6)
[2025-05-09 23:22] LABS: APTT 27.6 Sec (23.4-35.0)
[2025-05-09] MEDS: THIAMINE INJECTION 200 MG IV (23:25)
[2025-05-09 23:34] LABS: Blood Urea Nitrogen 12 mg/dl (9-20); Calcium 8.5 mg/dl (8.4-10.2); Carbon Dioxide 14 mmol/L (22-30); Chloride 98 mmol/L (98-107); Estimated Creatinine Clearance 76 ml/min; Glucose 131 mg/dl (70-99); Potassium 4.1 mmol/L (3.5-5.1); Sodium 124 mmol/L (135-145); eGFR 54.98
[2025-05-10] VITALS (7 sets, daily range): BP systolic 121–164; BP diastolic 80–92; PULSE 87; O2SAT 94
[2025-05-10 07:33] LABS: Hematocrit 24.5 % (39.0-52.0); Hemoglobin 8.9 g/dL (13.0-18.0); INR 1.08; Mean Corp Hgb Conc. 36.3 g/dL (33.0-37.0); Mean Corpuscular Volume 91.4 fL (80.0-94.0); PT 14.1 Sec (11.4-14.6); Red Cell Dist. Width 12.3 % (11.5-14.5)
[2025-05-10 07:48] LABS: Platelet Count 144 10^3/uL (130-400)
[2025-05-10] MEDS: DIOVAN 320 MG PO (08:53)
[2025-05-10] MEDS: LOPRESSOR 100 MG PO (08:53)
[2025-05-10] MEDS: XANAX 0.5 MG PO ×2 (08:53→20:24)
[2025-05-10] MEDS: ZITHROMAX 500 MG PO (08:53)
[2025-05-10] MEDS: TAMBOCOR 100 MG PO ×2 (08:53→20:22)
[2025-05-10] MEDS: DELTASONE 40 MG PO (08:54)
[2025-05-10] MEDS: SODIUM CHLORIDE 6 GRAM PO (08:54)
[2025-05-10] MEDS: TRICOR 145 MG PO (08:55)
[2025-05-10] MEDS: PROTONIX 40 MG PO ×2 (08:56→20:23)
[2025-05-10] MEDS: NORVASC 10 MG PO (08:56)
[2025-05-10] MEDS: FOLVITE 1 MG PO (08:57)
[2025-05-10] MEDS: THIAMINE INJECTION 200 MG IV ×3 (08:57→23:42)
[2025-05-10] MEDS: LIPITOR 40 MG PO (08:57)
[2025-05-10 09:24] LABS: ALT (SGPT) 170 U/L (0-50); AST (SGOT) 144 U/L (17-59); Albumin 3.2 g/dl (3.5-5.0); Alkaline Phosphatase 46 U/L (38-126); Blood Urea Nitrogen 12 mg/dl (9-20); Calcium 8.3 mg/dl (8.4-10.2); Carbon Dioxide 17 mmol/L (22-30); Chloride 98 mmol/L (98-107); Estimated Creatinine Clearance 88 ml/min; Glucose 119 mg/dl (70-99); Potassium 4.0 mmol/L (3.5-5.1); Sodium 125 mmol/L (135-145); Total Protein 5.5 g/dl (6.3-8.2); eGFR > 60.00
[2025-05-10 10:33] LABS: Magnesium 1.0 mg/dl (1.6-2.3)
--- NOTE | 2025-05-10 10:37 | W.PN.HOSP.TC ---
Today's Communication/Plan
-
Monitor vital signs see plan
Monitor for alcohol withdrawal
Monitor LFTs
Continue with antibiotic
Echo
Nephrology evaluation
Might need 3% saline
Monitor sodium
Assessment / Plan
Assessment / Plan
General: No Apparent Distress and Appears Chronically Ill
HEENT: Moist mucous membranes
Respiratory: Rhonchi (bilateral Ronchi ), Decreased Breath Sounds
Cardiac: S1/S2 and Regular Rhythm
GI: Soft, Non Tender and Non Distended
Musculoskeletal: Edema, Left Lower Extremity and Edema, Right Lower Extremity
Neuro: AO x 3
Psych: Calm and Intact Judgment/Insight
Shortness of breath secondary to multifocal pneumonia/pneumonitis with possible superimposed asymmetric pulmonary edema
Continue with ceftriaxone and azithromycin
Check echo
on prednisone
Acute on chronic hyponatremia suspect from alcohol abuse/dehydration
suspect beer potomania
Sodium still low, 125. Consult nephrology for evaluation
Likely will need 3% normal saline
suspect ETOH ketosis
Hypomagnesemia due to ETOH use disorder
Replete magnesium aggressively
Monitor
Hypophosphatemia
Monitor
TORITO suspect pre renal due to dehydration
Essential hypertension
- B/L Sandra edema
- cw Valsartan
- c/w Amlodipine
Monitor creatinine
Severe ETOH disorder -drinks 15 beers daily.
- Reversed AST : ALT ration suggestive of ETOH hepatitis
- Counseled on need for abstinence.
- Trend LFTs with abstinence from ETOH
- Watch closely for withdrawal symptoms.
- ETOH WD protocol
HX Prx AF
- HX CV twice and patient claims he has been in sinus rhythm since.
- Not on AC
- P clinical material handler is located in [facility].
Gout
-on allopurinol.
Hyperlipidemia
-on atorvastatin, fenofibric acid.
GERD
-on AcipHex.
Obesity due to excess calories
DVT Px: lovenox
Full code
I spent a total of 52 minutes with the patient or on the floor. More than 50% of this time involved counseling and coordination of care.
Anticipated Discharge: > 48 hours
Subjective/Interval History
-
Date of Service: May 10, 2025
denies pain
Objective Data
-
Labs:
Laboratory Results
05/09/25 05/10/25 05/10/25
22:49 07:01 08:36
WBC 14.2 H Pending
Hgb 8.9 L Pending
Hct 24.5 L Pending
Plt Count 144 D Pending
PT 13.9 14.1
INR 1.06 1.08
APTT 27.6
Sodium 124 L 125 L
Potassium 4.1 4.0
Chloride 98 98
Carbon Dioxide 14 L* 17 L
BUN 12 12
Creatinine 1.5 H 1.3
Glucose 131 H 119 H
Calcium 8.5 8.3 L
Total Bilirubin 0.8
AST 144 H
ALT 170 H
Alkaline Phosphatase 46
Vital Signs:
Vital Signs
Temp Pulse Resp BP Pulse Ox
98.5 F 87 20 149/88 94
05/10/25 08:52 05/10/25 08:52 05/10/25 08:52 05/10/25 08:52 05/10/25 08:52
I&O
05/09/25 05/10/25 05/11/25
06:59 06:59 06:59
Intake Total 237 / 237 240 / 240
Balance 237 / 237 240 / 240
[2025-05-10] MEDS: MAGNESIUM SULFATE 100 IV (10:52)
--- NOTE | 2025-05-10 11:39 | W.CON.NEPH ---
Addendum entered and electronically signed by Giovanna Coulter MD 05/10/25 19:38:
monitor met acidosis likely from etoh-expect to see improvement
Addendum entered and electronically signed by Giovanna Coulter MD 05/10/25 16:12:
please add correction in HPI-no nausea or vomiting
Original Note:
Consultation
-
Date/Time Consultation Requested: 05/10/25 1037
Date/Time Consultation Performed: 05/10/25 1130
Requesting Provider: Cam Mohan
Performing Provider: Giovanna Amaya
Reason for Consultation: Hyponatremia
Medical History
-
Chief Complaint: progressive SoB
History of Present Illness:
54M with PMH of CHr ETOH use, chr hyponatremia(baseline in high 120s) from beer potomania on salt tab 6gm daily, Gout on allopurinol, HTN on bystolic, Amlodipine, valsartan, HLD on fibrate, statin, GERD on Aciphex, Anxiety on xanax who came with
SoB. He reportedly has onset of cough sob over last 1 months and has been to , ER once on 05/05, refused to be admitted with sodium 124. Now came back on 05/09 with progressive SoB on exertion. He has been treated with PO ABx for PNA plus treating
for bronchitis with steroids for much the last month.He noted mild hypoxic 89% on RA and CXR was negative and underwent CT PE protocol shows no PE but multifocal PNA and possibly superimposed asymmetric pulm edema. He is now placed on Rocephin and
Azithromycin. Cont on prednisone. Initially BP were low in 60s with IVF improved to normal. Sodium was at 124 on admit and today only at 125, Cr was at 1.7 improving to 1.3, baseline 0.9. His ETOH level was 384, Serum osmolarity was at 348, LFTs
were elevated. He has chronic hyponatremia from ETOH, he drinks about 20-30beers daily. initially hypotensive 60s/40s - improving with IVF - now he is normotensive. He offers mild improvement of shortness of breath. Still with a cough and
improving nausea. He vomited yesterday. He denies any abdominal pain or diarrhea or constipation. Denies any dysuria. Had dizziness. Nephrology consulted for management of hyponatremia. he reports of having tremors and sweating when he doesn't
drink but reports only last for 1 day.
Past Medical History
Atrial fib s/p CVx2
Hypertension
Skin cancer
GERD
ETOH use
chr hyponatremia
Past Surgical History: Other (Appendectomy Shoulder reconstruction Cardioversion x2)
Social History
Tobacco: Non-Smoker
Alcohol: Daily (15cans daily and can increased upto 30 on weekend)
Drug: None
Employment: Employed ([employer] )
Family History
Family History: Not Pertinent
Allergies / Home Medications
Allergy/AdvReac Type Severity Reaction Status Date / Time
No Known Allergies Allergy Verified 05/09/25 15:16
�Medication �Instructions �Recorded �Confirmed �Type
allopurinol 300 mg tablet 300 mg PO DAILY Gout 02/02/22 05/09/25 History
alprazolam 0.5 mg tablet 0.5 mg PO BIDPRN PRN anxiety 02/02/22 05/09/25 History
atorvastatin 40 mg tablet 40 mg PO DAILY High cholesterol 02/02/22 05/09/25 History
fenofibric acid (choline) 135 mg 135 mg PO DAILY High Cholesterol 02/02/22 05/09/25 History
capsule,delayed release
flecainide 100 mg tablet 100 mg PO BID Arrhythmia 02/02/22 05/09/25 History
nebivolol 20 mg tablet (Bystolic) 20 mg PO DAILY Blood pressure 02/02/22 05/09/25 History
rabeprazole 20 mg tablet,delayed 20 mg PO BID 02/02/22 05/09/25 History
release (AcipHex)
sodium chloride 1,000 mg soluble 6,000 mg PO DAILY 02/02/22 05/09/25 History
tablet
prednisone 10 mg tablet See Rx Instructions .Route 05/05/25 05/09/25 Rx
.COMPLEX #30 tabs
alprazolam 0.5 mg tablet (Xanax) 0.5 mg PO DAILY Mental 05/09/25 05/09/25 History
Health/Anxiety
amlodipine 10 mg-valsartan 320 mg 1 tab PO DAILY 05/09/25 05/09/25 History
tablet
Review of Systems
-
All other systems: Negative unless noted
Physical Exam
Vital Signs
Vital Signs
Temp Pulse Resp BP Pulse Ox
97.3 F 82 20 146/85 97
05/10/25 12:07 05/10/25 12:07 05/10/25 12:07 05/10/25 12:07 05/10/25 12:07
Lab Results
WBC Cancelled 05/10/25 08:36
RBC Cancelled 05/10/25 08:36
Hgb Cancelled 05/10/25 08:36
Hct Cancelled 05/10/25 08:36
Plt Count Cancelled 05/10/25 08:36
Potassium 4.0 mmol/L (3.5-5.1) 05/10/25 08:36
Chloride 98 mmol/L (98-107) 05/10/25 08:36
Carbon Dioxide 17 mmol/L (22-30) L 05/10/25 08:36
BUN 12 mg/dl (9-20) 05/10/25 08:36
Creatinine 1.3 mg/dL (0.7-1.3) 05/10/25 08:36
eGFR > 60.00 05/10/25 08:36
Glucose 119 mg/dl (70-99) H 05/10/25 08:36
Calcium 8.3 mg/dl (8.4-10.2) L 05/10/25 08:36
Phosphorus 3.1 mg/dl (2.5-4.5) 05/10/25 08:36
Qdg-S-Oiqfelfaqtt Pept 1060 pg/ml 05/09/25 15:40
Albumin 3.2 g/dl (3.5-5.0) L 05/10/25 08:36
Physical Exam
General: Awake, Alert, Oriented, AOx3, No Distress and Nontoxic
HEENT: EOMI, Conjunctivae Clear and Facial Symmetry
Respiratory: Clear, Normal Excursion and Nonlabored Respirations
Cardiac: S1/S2 and Regular Rate/Rhythm
Breast: Deferred by me
Abdomen: Soft, Nontender and Nondistended
Musculoskeletal: No Cyanosis and Edema
Skin: No Rash
Neuro: Nonfocal/Grossly Intact
Psych: Appropriate
Assessment/Plan
-
IMP:
Shortness of breath secondary to multifocal pneumonia/pneumonitis with possible superimposed asymmetric pulmonary edema
Acute on chronic hyponatremia suspect beer potomania
Mild non gap met acidosis
suspect ETOH ketosis
TORITO
Hypomagnesemia due to ETOH use disorder
Hypophosphatemia
HYpotension on admit resolved
h/o Essential hypertension
Severe ETOH disorder
Reversed AST : ALT ration suggestive of ETOH hepatitis
HX Prx AF - HX CV
Gout
Hyperlipidemia
GERD
Obesity due to excess calories
Anemia
PLan:
A/w progressive cough and SOB, CT noted multifocal PNA also ?pulm edema
Hyponatremia -mostly it is from beer potomania , heavy ETOH intake
he is already on high dose od salt tab 6gm daily,
has high ADh activity from PNA and low BPs, U osmo 241, U na 29
absolute need of weaning ETOH, he is aware of complications of ETOH
his S osmo was high on admit at 384, will repeat this am
if serum osmo improving and no improvement in sodium may consider HTS
however there is concern of pulm edema, high BNP 1060 but in setting of TORITO
As BP remains stable, could try lasix first , await echo
TORITO-bland UA, prerenal improving with IVF
replace mg and phos
corrected diamond is normal
BP are improving back on home meds
follow LFTs improving
monitor for DTs
follow h/h-check fe level, b12 and folate
reviewed in detail with pt imp of weaning off ETOH, he seem aware of all the complications including low na and liver failure
d/w nursing
--- NOTE | 2025-05-10 14:48 | CM ---
Alert awake patient who lives with SO Reema . He is independent with all ADLs and drives . He lives in 2 story home with 2 steps to enter and 14 steps to bed bath room .No Adaptive devices.Declined substance abuse counselling.
No VN /SNF hx
Pharmacy [facility]
PCP Dr Lockett
PLAN Home no needs
[2025-05-10] MEDS: ROCEPHIN 1000 MG IV (16:29)
[2025-05-10] MEDS: STERILE WATER FOR INJECTION 10 ML IV (16:29)
[2025-05-10] MEDS: LASIX 20 MG IV (16:30)
[2025-05-10] MEDS: LOVENOX 40 MG SC (17:11)
--- NOTE | 2025-05-10 18:31 | PTCARENOTE ---
pt with sob with exertion, tolerating diet, independent in room, gait steady, +tremors, MSAS score remains 4, vss, will continue to monitor.
[2025-05-10 21:02] LABS: Sodium 126 mmol/L (135-145)
[2025-05-11 03:00] VITALS: BP 131/82
[2025-05-11 07:30] VITALS: BP 144/93
[2025-05-11] MEDS: SODIUM CHLORIDE 6 GRAM PO (08:19)
[2025-05-11] MEDS: LOPRESSOR 100 MG PO (08:20)
[2025-05-11] MEDS: ZITHROMAX 500 MG PO (08:20)
[2025-05-11] MEDS: DIOVAN 320 MG PO (08:20)
[2025-05-11] MEDS: NORVASC 10 MG PO (08:20)
[2025-05-11] MEDS: TRICOR 145 MG PO (08:20)
[2025-05-11] MEDS: FOLVITE 1 MG PO (08:20)
[2025-05-11] MEDS: PROTONIX 40 MG PO ×2 (08:20→20:49)
[2025-05-11] MEDS: XANAX 0.5 MG PO ×3 (08:21→20:49)
[2025-05-11] MEDS: DELTASONE 40 MG PO (08:21)
[2025-05-11] MEDS: TAMBOCOR 100 MG PO ×2 (08:21→20:48)
[2025-05-11] MEDS: THIAMINE INJECTION 200 MG IV ×3 (08:21→23:28)
[2025-05-11] MEDS: LIPITOR 40 MG PO (08:21)
[2025-05-11 08:32] LABS: Hematocrit 27.1 % (39.0-52.0); Hemoglobin 9.8 g/dL (13.0-18.0); Mean Corp Hgb Conc. 36.2 g/dL (33.0-37.0); Mean Corpuscular Volume 93.1 fL (80.0-94.0); Nucleated Red Blood Cells % 0 % (-); Platelet Count 171 10^3/uL (130-400); Red Cell Dist. Width 12.3 % (11.5-14.5)
[2025-05-11 09:10] LABS: ALT (SGPT) 136 U/L (0-50); AST (SGOT) 93 U/L (17-59); Albumin 3.7 g/dl (3.5-5.0); Alkaline Phosphatase 53 U/L (38-126); Blood Urea Nitrogen 16 mg/dl (9-20); Calcium 9.3 mg/dl (8.4-10.2); Carbon Dioxide 26 mmol/L (22-30); Chloride 96 mmol/L (98-107); Estimated Creatinine Clearance 88 ml/min; Glucose 76 mg/dl (70-99); Iron 55 ug/dl (49-181); Magnesium 1.3 mg/dl (1.6-2.3); Potassium 3.4 mmol/L (3.5-5.1); Sodium 129 mmol/L (135-145); Total Protein 6.4 g/dl (6.3-8.2); eGFR > 60.00
[2025-05-11 09:20] LABS: Total Iron Binding Capacity 264 ug/dl (261-462)
[2025-05-11 10:06] LABS: Folate 5.9 ng/ml (2.76-20); Vitamin B12 812 pg/ml (239-931)
--- NOTE | 2025-05-11 11:37 | W.PN.NEPH.PH ---
Today's Communication / Plan
-
Maintain fluid restriction but will change to 48 ounces daily
Maintain salt tab
Follow-up back
Recheck BMP in a.m.
Follow-up cardiac echo
Assessment/Plan
-
IMP:
Shortness of breath secondary to multifocal pneumonia/pneumonitis with possible superimposed asymmetric pulmonary edema
Acute on chronic hyponatremia suspect beer potomania
Mild non gap met acidosis
suspect ETOH ketosis
TORITO
Hypomagnesemia due to ETOH use disorder
Hypophosphatemia
HYpotension on admit resolved
h/o Essential hypertension
Severe ETOH disorder
Reversed AST : ALT ration suggestive of ETOH hepatitis
HX Prx AF - HX CV
Gout
Hyperlipidemia
GERD
Obesity due to excess calories
Anemia
PLan:
Patient received Lasix last evening at 20 mg IV x 1
Sodium up from 125-129
Maintain fluid restriction and salt tablets
Will likely add Lasix 20 mg every other day at discharge
For echocardiogram today in regards to elevated BNP and abnormal CT of chest findings
A/w progressive cough and SOB, CT noted multifocal PNA also ?pulm edema
Hyponatremia -mostly it is from beer potomania , heavy ETOH intake
he is already on high dose od salt tab 6gm daily,
has high ADh activity from PNA and low BPs, U osmo 241, U na 29
absolute need of weaning ETOH, he is aware of complications of ETOH
his S osmo was high on admit at 384,
S
replace mg and phos pnr
corrected diamond is normal
BP are improving back on home meds
follow LFTs improving
monitor for DTs
follow h/h-check fe level, b12 and folate
previously reviewed in detail with pt imp of weaning off ETOH, he seem aware of all the complications including low na and liver failure
d/w nursing
-
-
Date of Service: May 11, 2025
CC / HPI / ROS
-
Chief Complaint:
Hyponatremia
History of Present Illness:
Serum sodium up to 129 following IV Lasix administration last evening
Hemodynamically stable
Creatinine improved to 1.3
Review of Systems:
Nonoliguric
No fevers
Labs
-
Labs:
WBC 11.9 10^3/uL (4.8-10.8) H 05/11/25 07:37
RBC 2.91 10^6/uL (4.70-6.10) L 05/11/25 07:37
Hgb 9.8 g/dL (13.0-18.0) L 05/11/25 07:37
Hct 27.1 % (39.0-52.0) L 05/11/25 07:37
Plt Count 171 10^3/uL (130-400) 05/11/25 07:37
Sodium 129 mmol/L (135-145) L 05/11/25 07:37
Potassium 3.4 mmol/L (3.5-5.1) L 05/11/25 07:37
Chloride 96 mmol/L (98-107) L 05/11/25 07:37
Carbon Dioxide 26 mmol/L (22-30) 05/11/25 07:37
BUN 16 mg/dl (9-20) 05/11/25 07:37
Creatinine 1.3 mg/dL (0.7-1.3) 05/11/25 07:37
eGFR > 60.00 05/11/25 07:37
Glucose 76 mg/dl (70-99) 05/11/25 07:37
Calcium 9.3 mg/dl (8.4-10.2) 05/11/25 07:37
Phosphorus 2.1 mg/dl (2.5-4.5) L 05/11/25 07:37
Hhu-G-Xuvawimlqun Pept 1060 pg/ml 12/06/25 15:40
Albumin 3.7 g/dl (3.5-5.0) 05/11/25 07:37
Physical Exam
-
Vital Signs:
Vital Signs
Temp Pulse Resp BP Pulse Ox
97.7 F 75 20 144/93 94
05/11/25 07:30 05/11/25 08:20 05/11/25 07:30 05/11/25 08:20 05/11/25 09:12
Cardiovascular:: Regular rate and rhythm
Respiratory:: Bilateral: CTA
Lung Excursion:: Normal
Abdomen:: Nontender and Soft
Bowel Sounds:: Normal
Extremity Edema:: None: Bilateral:
Desir Catheter: No
--- NOTE | 2025-05-11 11:52 | W.PN.HOSP.TC ---
Today's Communication/Plan
-
Monitor vital signs and see plan
Echo today
Continue with fluid restriction
Monitor sodium
Continue with antibiotic
Replete potassium, magnesium, phosphorus
Assessment / Plan
Assessment / Plan
General: No Apparent Distress and Appears Chronically Ill
HEENT: Moist mucous membranes
Respiratory: Rhonchi (bilateral Ronchi ), Decreased Breath Sounds
Cardiac: S1/S2 and Regular Rhythm
GI: Soft, Non Tender and Non Distended
Musculoskeletal: Edema, Left Lower Extremity and Edema, Right Lower Extremity
Neuro: AO x 3
Psych: Calm and Intact Judgment/Insight
Shortness of breath secondary to multifocal pneumonia/pneumonitis with possible superimposed asymmetric pulmonary edema
Continue with ceftriaxone and azithromycin
Check echo, Elevated proBNP
on prednisone, Decreased to 30 mg
Will need home O2 evaluation
Acute on chronic hyponatremia suspect from alcohol abuse/dehydration
suspect beer potomania
Sodium now mildly improved to 129 after Lasix 05/10. Continue with salt tabs. Fluid restriction. Nephrology following
suspect ETOH ketosis
Hypomagnesemia due to ETOH use disorder
Replete magnesium aggressively
Monitor
Hypophosphatemia
Monitor
TORITO suspect pre renal due to dehydration
Essential hypertension
- B/L Sandra edema
- cw Valsartan
- c/w Amlodipine
Monitor creatinine
Severe ETOH disorder -drinks 15 beers daily.
- Reversed AST : ALT ration suggestive of ETOH hepatitis
- Counseled on need for abstinence.
- Trend LFTs with abstinence from ETOH
- Watch closely for withdrawal symptoms.
- ETOH WD protocol
HX Prx AF
- HX CV twice and patient claims he has been in sinus rhythm since.
- Not on AC
- P investments manager is located in [facility].
Gout
-on allopurinol.
Hyperlipidemia
-on atorvastatin, fenofibric acid.
GERD
-on AcipHex.
Obesity due to excess calories
DVT Px: lovenox
Full code
I spent a total of 51 minutes with the patient or on the floor. More than 50% of this time involved counseling and coordination of care.
Anticipated Discharge: 24 - 48 hours
Subjective/Interval History
-
Date of Service: May 11, 2025
Denies pain
Objective Data
-
Labs:
Laboratory Results
05/11/25
07:37
WBC 11.9 H
Hgb 9.8 L
Hct 27.1 L
Plt Count 171
Sodium 129 L
Potassium 3.4 L
Chloride 96 L
Carbon Dioxide 26
BUN 16
Creatinine 1.3
Glucose 76
Calcium 9.3
Total Bilirubin 1.2
AST 93 H
ALT 136 H
Alkaline Phosphatase 53
Vital Signs:
Vital Signs
Temp Pulse Resp BP Pulse Ox
97.7 F 75 20 144/93 94
05/11/25 07:30 05/11/25 08:20 05/11/25 07:30 05/11/25 08:20 05/11/25 09:12
I&O
05/10/25 05/11/25 05/12/25
06:59 06:59 06:59
Intake Total 237 / 237 2880 / 2880
Balance 237 / 237 2880 / 2880
[2025-05-11] MEDS: MAGNESIUM SULFATE 50 IV (12:28)
[2025-05-11 14:47] VITALS: BP 142/89
--- NOTE | 2025-05-11 15:12 | CM ---
Patient seen at bedside
PT eval 05/10
declines BCARES
PLAN: Home, no needs when stable
[2025-05-11] MEDS: STERILE WATER FOR INJECTION 10 ML IV (16:04)
[2025-05-11] MEDS: ROCEPHIN 1000 MG IV (16:04)
[2025-05-11] MEDS: POTASSIUM PHOSPHATE 259.0909 MEQ IV (16:04)
[2025-05-11 16:08] LABS: Ferritin 667.0 ng/ml (17.9-464.0)
[2025-05-11] MEDS: LOVENOX 40 MG SC (17:09)
[2025-05-11 19:00] VITALS: BP 156/100
[2025-05-11 23:00] VITALS: BP 162/97
--- NOTE | 2025-05-11 23:33 | PTCARENOTE ---
Pt c/o of diarrhea which is new and started today. Denies abdominal pain and nausea. No fevers. Denies traveling. House provider TT. Awaiting new orders.
[2025-05-12 03:00] VITALS: BP 150/88
[2025-05-12 06:36] LABS: Hematocrit 27.2 % (39.0-52.0); Hemoglobin 9.9 g/dL (13.0-18.0); Mean Corp Hgb Conc. 36.4 g/dL (33.0-37.0); Mean Corpuscular Volume 93.2 fL (80.0-94.0); Nucleated Red Blood Cells % 0 % (-); Platelet Count 167 10^3/uL (130-400); Red Cell Dist. Width 12.3 % (11.5-14.5)
[2025-05-12 06:56] LABS: ALT (SGPT) 116 U/L (0-50); AST (SGOT) 72 U/L (17-59); Albumin 3.7 g/dl (3.5-5.0); Alkaline Phosphatase 58 U/L (38-126); Blood Urea Nitrogen 16 mg/dl (9-20); Calcium 9.4 mg/dl (8.4-10.2); Carbon Dioxide 28 mmol/L (22-30); Chloride 94 mmol/L (98-107); Estimated Creatinine Clearance 95 ml/min; Glucose 80 mg/dl (70-99); Magnesium 1.3 mg/dl (1.6-2.3); Potassium 3.3 mmol/L (3.5-5.1); Sodium 129 mmol/L (135-145); Total Protein 6.4 g/dl (6.3-8.2); eGFR > 60.00
[2025-05-12 07:36] VITALS: BP 137/105
[2025-05-12] MEDS: DELTASONE 30 MG PO (07:40)
[2025-05-12] MEDS: TAMBOCOR 100 MG PO (07:40)
[2025-05-12] MEDS: FOLVITE 1 MG PO (07:40)
[2025-05-12] MEDS: ZITHROMAX 500 MG PO (07:41)
[2025-05-12] MEDS: PROTONIX 40 MG PO (07:41)
[2025-05-12] MEDS: TRICOR 145 MG PO (07:41)
[2025-05-12] MEDS: SODIUM CHLORIDE 6 GRAM PO (07:41)
[2025-05-12] MEDS: NORVASC 10 MG PO (07:41)
[2025-05-12] MEDS: DIOVAN 320 MG PO (07:41)
[2025-05-12] MEDS: XANAX 0.5 MG PO (07:41)
[2025-05-12] MEDS: ZYLOPRIM 300 MG PO (07:42)
[2025-05-12] MEDS: THIAMINE INJECTION 200 MG IV (07:42)
[2025-05-12] MEDS: LOPRESSOR 100 MG PO (07:42)
[2025-05-12] MEDS: LIPITOR 40 MG PO (07:42)
[2025-05-12] MEDS: KCL 40 MEQ PO (09:11)
[2025-05-12] MEDS: MAGNESIUM SULFATE 50 IV (09:11)
[2025-05-12 11:20] VITALS: BP 140/83
--- NOTE | 2025-05-12 11:55 | W.PN.HOSP.TC ---
Today's Communication/Plan
-
Monitor vital signs see plan
Transition antibiotics to orals
Discussed with nephrology, discharged on fluid restriction and sodium tab
BMP later this week with PCP
Time of discharge 38 minutes
Assessment / Plan
Assessment / Plan
General: No Apparent Distress and Appears Chronically Ill
HEENT: Moist mucous membranes
Respiratory: Rhonchi (bilateral Ronchi ), Decreased Breath Sounds
Cardiac: S1/S2 and Regular Rhythm
GI: Soft, Non Tender and Non Distended
Musculoskeletal: Edema, Left Lower Extremity and Edema, Right Lower Extremity
Neuro: AO x 3
Psych: Calm and Intact Judgment/Insight
Shortness of breath secondary to multifocal pneumonia/pneumonitis with possible superimposed asymmetric pulmonary edema
Continue with ceftriaxone and azithromycin, Transition antibiotics to cefdinir and azithromycin.
Echocardiogram reviewed 05/11. Preserved EF., Elevated proBNP
on prednisone, Decreased to 30 mg; Decrease by 10 every 3 days
on room air
Acute on chronic hyponatremia suspect from alcohol abuse/dehydration
suspect beer potomania
Sodium now mildly improved to 129 after Lasix 05/10. Continue with salt tabs. Fluid restriction. Nephrology following
suspect ETOH ketosis
Hypomagnesemia due to ETOH use disorder
Replete magnesium aggressively
Monitor
Hypophosphatemia
Now improved
TORITO suspect pre renal due to dehydration
Essential hypertension
- B/L Sandra edema
- cw Valsartan
- c/w Amlodipine
Monitor creatinine
Severe ETOH disorder -drinks 15 beers daily.
- Reversed AST : ALT ration suggestive of ETOH hepatitis
- Counseled on need for abstinence.
- Trend LFTs with abstinence from ETOH
- Watch closely for withdrawal symptoms.
- ETOH WD protocol
HX Prx AF
- HX CV twice and patient claims he has been in sinus rhythm since.
- Not on AC
- P rubber tester is located in [facility].
Gout
-on allopurinol.
Hyperlipidemia
-on atorvastatin, fenofibric acid.
GERD
-on AcipHex.
Obesity due to excess calories
DVT Px: lovenox
Full code
Anticipated Discharge: Today
Subjective/Interval History
-
Date of Service: May 12, 2025
denies pain
Objective Data
-
Labs:
Laboratory Results
05/12/25
05:57
WBC 9.6
Hgb 9.9 L
Hct 27.2 L
Plt Count 167
Sodium 129 L
Potassium 3.3 L
Chloride 94 L
Carbon Dioxide 28
BUN 16
Creatinine 1.2
Glucose 80
Calcium 9.4
Total Bilirubin 1.2
AST 72 H
ALT 116 H
Alkaline Phosphatase 58
Vital Signs:
Vital Signs
Temp Pulse Resp BP Pulse Ox
98.5 F 73 16 140/83 94
05/12/25 11:20 05/12/25 11:20 05/12/25 11:20 05/12/25 11:20 05/12/25 11:20
I&O
05/11/25 05/12/25 05/13/25
06:59 06:59 06:59
Intake Total 2880 / 2880 1440 / 1440
Balance 2880 / 2880 1440 / 1440
--- NOTE | 2025-05-12 12:05 | W.DCSUMMARY ---
Discharge Summary
Discharge Data
Date of Admission: 05/09/25
Date of Discharge: 05/12/25
-
Pending Results: No
Hospital Course
54-year-old male with past medical history of hyponatremia, alcohol use with abuse, paroxysmal atrial fibrillation, gout, hyperlipidemia, GERD, obesity came to the hospital with shortness of breath secondary to multifocal pneumonia/pneumonitis.
Patient was initially started on IV antibiotic which were later transitioned to p.o. cefdinir and azithromycin to complete the course. On this hospitalization he also had acute on chronic hyponatremia which was likely thought was secondary to his
alcohol use. He did require one-time Lasix per nephrology. He was also on fluid restriction along with sodium tabs. His discharge sodium was improving and it was 129. Patient also had significant electrolyte abnormality with low magnesium,
potassium and phosphorus. These were repleted prior to discharge. Once patient symptoms continue to improve, he was then discharged home with instructions to follow-up with all his physicians outpatient.
Discharge Plan
-
Patient Disposition: Home (Routine Discharge)
Discharge Diagnosis/Procedures: Shortness of breath secondary to multifocal pneumonia/pneumonitis
Acute on chronic hyponatremia
Hypomagnesemia
Hypophosphatemia
Hypokalemia
Alcohol use with abuse
Diet: As tolerated and Restrict fluids to 48 oz
Activity: As tolerated
Driving Restrictions: As prior to admission
Bathing Restrictions: None
Blood Work: BMP outpatient with primary care provider
Others Tests: Chest x-ray in 4 weeks with primary care provider
Activity Restrictions/Additional Instructions:
Take prednisone 30 mg for another day tomorrow then decrease down to 20 mg and decrease by 10 mg every 3 days.
Referrals:
Joshua Hogan MD [Active, Pulmonary Medicine]
UNKNOWN - PT DOES,NOT KNOW [Family Provider, Internal Medicine] - in less than 1 week
Prescriptions:
New
folic acid 1 mg Tablet
1 mg PO DAILY Qty: 30 0RF
thiamine mononitrate (vit B1) 100 mg Tablet
100 mg PO BID Qty: 60 0RF
azithromycin 500 mg tablet
500 mg PO DAILY 5 Days Qty: 5 0RF
cefdinir 300 mg capsule
300 mg PO Q12H 5 Days Qty: 10 0RF
Continued
atorvastatin 40 mg Tablet
40 mg PO DAILY
rabeprazole [AcipHex] 20 mg Tablet,Delayed Release (Dr/Ec)
20 mg PO BID
alprazolam 0.5 mg Tablet
0.5 mg PO BIDPRN PRN (Reason: anxiety)
flecainide 100 mg Tablet
100 mg PO BID
allopurinol 300 mg Tablet
300 mg PO DAILY
sodium chloride 1,000 mg Tablet,Soluble
6,000 mg PO DAILY
fenofibric acid (choline) 135 mg capsule,delayed release(DR/EC)
135 mg PO DAILY
nebivolol [Bystolic] 20 mg Tablet
20 mg PO DAILY
prednisone 10 mg Tablet
See Rx Instructions .ROUTE .COMPLEX Qty: 30 0RF
Rx Instructions:
Take By Mouth:
40 mg daily x3 days, 30 mg daily x3 days,
20 mg daily x3 days, 10 mg daily x3 days.
amlodipine-valsartan 10-320 mg Tablet
1 tab PO DAILY
alprazolam [Xanax] 0.5 mg Tablet
0.5 mg PO DAILY
Discharge Orders:
Discharge Patient (As Directed); Ordered 05/12/25
Ordered By: Cam Fabian
Discharge Date and Time
Discharge Date/Time: 05/12/25 13:09
Print Language: PUERTO RICAN
--- NOTE | 2025-05-12 12:33 | CM ---
patient discharge today
IMM n/a
no needs
declined BCARES
PLAN: Home, no needs
significant other to transport
== END 2025-05-12 13:09 | disposition home or self-care (01) | DRG 194 ==
LOC: 3 WEST ACU 20:17
PROVIDERS: ADMITTING PHYSICIAN Internal Medicine; ATTENDING PHYSICIAN Internal Medicine; CONSULT PHYSICIAN Internal Medicine; EMERGENCY PHYSICIAN Emergency Medicine
DX: J18.9 Pneumonia, unspecified organism (principal); E87.1 Hypo-osmolality and hyponatremia; N17.9 Acute kidney failure, unspecified; E87.20 Acidosis, unspecified; E83.42 Hypomagnesemia; I95.9 Hypotension, unspecified; E66.09 Other obesity due to excess calories; E83.39 Other disorders of phosphorus metabolism; E87.6 Hypokalemia; I10 Essential (primary) hypertension; I48.0 Paroxysmal atrial fibrillation; K21.9 Gastro-esophageal reflux disease without esophagitis; M10.9 Gout, unspecified; E78.5 Hyperlipidemia, unspecified; F10.10 Alcohol abuse, uncomplicated; Z68.30 Body mass index [BMI] 30.0-30.9, adult; Z79.899 Other long term (current) drug therapy
CPT/HCPCS: 71046; 71275; 80048; 80053; 80306; 80307; 81003; 82010; 82077; 82607; 82728; 82746; 82977; 83540; 83550; 83605; 83735; 83880; 83930; 83935; 84100; 84295; 84300; 84484; 85025; 85027; 85379; 85610; 85730; 87040; 87070; 87205; 87502; 93005; 93306; 94640; 96361; 96365; 96367; 96375; 97161; 99291; Q9967